=== PATIENT | male | born 1995 | race Caucasian/White ===

== ENCOUNTER 2022-10-01 08:08 | Inpatient (IN) | payer OTHER ==
[2022-10-01] VITALS (233 sets, daily range): BP systolic 59–138; BP diastolic 29–91; PULSE 80–95; TEMP 99–100.7; O2SAT 32–100
[~2022-10-01] VITALS: Wt 68.2 kg
[2022-10-01 08:40] LABS: HEMATOCRIT 50.3 % (42.0-52.0); HEMOGLOBIN 16.6 g/dl (13.5-18.0); MEAN CELL VOLUME 90 fl (80.0-100.0); MEAN CORPUSCULAR HEMOGLOBIN 30 pg (27-31); MEAN CORPUSCULAR HGB CONC 33 g/dl (33.0-37.0); MEAN PLATELET VOLUME 9.8 fl (7.4-10.4); PLATELET COUNT 347 K/mm3 (130-400); RED BLOOD COUNT 5.62 M/mm3 (4.20-5.60); REDCELL DISTRIBUTION WIDTH-CV 12.1 % (11.5-14.5)
[2022-10-01 08:47] LABS: BAND 3 % (0-10); LYMPHOCYTE 88 % (20.0-51.0); NEUTROPHILS 7 % (42.0-75.2); PLATELET ESTIMATE NORMAL (NORMAL)
[2022-10-01 08:49] LABS: COLLECTION METHOD CATHETER
[2022-10-01 08:51] LABS: BILIRUBIN,TOTAL 0.7 mg/dL (0.2-1.2); CALCIUM 9.5 mg/dL (8.4-10.2); CREATININE, serum 1.44 mg/dL (0.72-1.25); POTASSIUM 3.3 mmol/L (3.5-4.5); TOTAL PROTEIN 6.8 gm/dL (6.2-8.1)
[2022-10-01 08:53] LABS: PROTHROMBIN TIME 11.4 SECONDS (9.7-12.8)
[2022-10-01 08:56] LABS: TROPONIN-I 0.013 ng/mL (0.00-0.033)
[2022-10-01 09:03] LABS: ARTERIAL BLD GAS O2 SATURATION 91.8 % (92-100); ARTERIAL BLD GAS TCO2 CT 16.7; ARTERIAL BLOOD GAS BASE EXCESS -13.6 (-2-2); ARTERIAL BLOOD GAS HCO3 15.3 meq/L (22-26); ARTERIAL BLOOD GAS PCO2 46.4 mmHg (35-45); ARTERIAL BLOOD GAS PO2 79.1 mmHg (80-100); ARTERIAL BLOOD GAS pH 7.14 (7.35-7.45)
[2022-10-01 09:11] LABS: TRICYCLIC ANTIDEPRESS URINE NEGATIVE
[2022-10-01 09:13] LABS: MUCOUS Present (NOT PRESENT); SQUAMOUS EPITHELIAL 0-2 /hpf (0-10); URINE BACTERIA None Seen /hpf (NONE SEEN)
[2022-10-01 09:15] LABS: PH 6.5 (5.0-8.5); URINE APPEARANCE Clear (CLEAR/HAZY); URINE BLOOD 1+ (NEGATIVE); URINE COLOR Yellow (YELLOW); URINE GLUCOSE 1+ (NEGATIVE); URINE KETONE Negative (NEGATIVE); URINE NITRATE Negative (NEGATIVE); URINE PROTEIN(semi-quant) 3+ (NEGATIVE); URINE UROBILINOGEN 0.2 E.U/dL (0.2-1.0)
[2022-10-01] MEDS ORDERED: ZOLOFT 100MG100 MG PO (09:36)
--- NOTE | 2022-10-01 09:45 | NUR ---
THIS NURSE RECIEVED PT A POST CODE, GIRLFRIEND IS BEDSIDE BUT POOR HISTORIA ON PMH.
--- NOTE | 2022-10-01 10:00 | NUR ---
REMOVED RIGHT TIB IO .
--- NOTE | 2022-10-01 10:09 | NUR ---
called to Emergency Department by Sccm Administrator to be with a young woman who is patient's significant other. Patient holding his own while Physicians are ordering tests to discern the cause of his issues. Patient's body shut down at one point. talked with Rachel' friend letting her know Medical Office Assistant is available to her throughout the day. She thanked and stated that she was on the phone with patient's family at that time.
[2022-10-01 10:45] LABS: ALBUMIN 2.8 gm/dL (3.5-5.0); BILIRUBIN,TOTAL 0.5 mg/dL (0.2-1.2); PHOSPHOROUS 3.4 mg/dL (2.3-4.7); TOTAL PROTEIN 4.7 gm/dL (6.2-8.1)
[2022-10-01 10:48] LABS: CALCIUM 7.4 mg/dL (8.4-10.2); CREATININE, serum 1.13 mg/dL (0.72-1.25); MAGNESIUM 1.6 mg/dL (1.6-2.6)
[2022-10-01 10:56] LABS: TROPONIN-I 0.327 ng/mL (0.00-0.033)
--- NOTE | 2022-10-01 10:57 | NUR ---
PT TO THE UNIT AT 0926. PT IS INTUBATED ON MECHANICAL VENTILATOR, PROPOFOL, FENTANYL, LEVOPHED RUNNING. RICE AND OG IN PLACE. DR. HUTTON BEDSIDE. PT PLACED ON ICU MONITORING.
[2022-10-01 11:19] LABS: BILIRUBIN,DIRECT 0.2 mg/dL (0.0-0.5)
--- NOTE | 2022-10-01 12:00 | NUR ---
RECTAL TEMP PLACED. COOLING BLANKET ON AND HYPOTHERMIC PROTOCOL STARTED.
[2022-10-01 13:05] LABS: ARTERIAL BLD GAS O2 SATURATION 92.1 % (92-100); ARTERIAL BLD GAS TCO2 CT 20.8; ARTERIAL BLOOD GAS BASE EXCESS -6.5 (-2-2); ARTERIAL BLOOD GAS HCO3 19.5 meq/L (22-26); ARTERIAL BLOOD GAS PO2 68.4 mmHg (80-100)
--- NOTE | 2022-10-01 14:07 | NUR ---
derrick worker met with patient's girlfriend of 10 years, Stephanie #[phone] and offered support. Stephanie states patient recently graduated from the [employer] and had secured a job in [facility]. Stephanie stated that she has notified patient's parents and that they are flying here from [facility] and that her sister is flying here as well to be with her. Chaplain Santamaria is present and supportive. We are waiting to see if [facility] accepts.
--- NOTE | 2022-10-01 14:10 | NUR ---
Follow-up; Patient having setbacks, Credit Control Clerk offered prayer and stayed with his girlfriend, Stephanie off and on throughout the day.
[2022-10-01 14:31] LABS: ARTERIAL BLD GAS TCO2 CT 19.8; ARTERIAL BLOOD GAS BASE EXCESS -6.6 (-2-2); ARTERIAL BLOOD GAS HCO3 18.7 meq/L (22-26); ARTERIAL BLOOD GAS PCO2 36.8 mmHg (35-45); ARTERIAL BLOOD GAS PO2 81.9 mmHg (80-100); ARTERIAL BLOOD GAS pH 7.32 (7.35-7.45)
--- NOTE | 2022-10-01 17:00 | NUR ---
DESPITE COOLING BLANKET, PT MAINTAINS A HIGH TEMPERATURE 100.6 RECTAL. PT DOES SHIVER. SEE MAR FOR MEDICATION GIVEN.
--- NOTE | 2022-10-01 17:44 | NUR ---
REPORT GIVEN [facility] [phone] FOR [id number]
--- NOTE | 2022-10-01 17:49 | NUR ---
THIS NURSE RECIEVED PT AT 0945 PT IS IN ICU 01 SEDATED AND VENTILATED. AT 1200 PT WENT DOWN TO CT WITH THIS NURSE, RN STUDENT, AND RT JUDY. UNEVENTFUL ON ARRIVAL BACK TO ICU ROOM THIS NURSE STARTED TO NOTICE THAT PT BP WAS GETTING LOW, WHILE RE-INITIATING THE ART LINE THIS NURSE NOTICED VERY POR WAVEFORMS . PULSE WAS CHECKED AND PT HAD TOO WEAK OR NO PULSE WHILE MONITOR SHOWED A SR IN THE 80S. THIS NURSE INITIATED CPR AND CALLED A CODE BLUE SEE CODE BLUE RECORD WITH DR. TAYLOR AND DR. GARCIA BEDSIDE PT ACHIEVED ROSC SEE GTT TITRATIONS SEE ASSESSMENT
--- NOTE | 2022-10-02 07:34 | NUR ---
On 10/01/22, patient was accepted to . Girlfriend, Stephanie, states that she will await her sister's arrival and drive with her to . campaign worker offered emotional support. Dr Cao provided updates to Stephanie and patient's parents that were on speaker phone.
--- NOTE | 2022-10-04 10:42 | NUR ---
Follow-up; Patient transported to [place] where word came 10/03 that he is recovering well and family wanted everyone who cared for him at [facility] to know how much he and family appreciates his care here. thanked Stephanie (his girlfriend) for calling with a wonderful update on Talis' physical improvement.
== END 2022-10-01 19:09 | disposition short-term general hospital (02) | DRG 280 ==
LOC: COL.ER 08:08 → ICU 08:57
PROVIDERS: Family Medicine; Internal Medicine Pulmonary Disease; ADMIT Internal Medicine
PROC: 02HV33Z Insertion of Infusion Device into Superior Vena Cava, Percutaneous Approach (ICD-10-PCS; principal; 2022-10-01)
PROC: 03HY32Z Insertion of Monitoring Device into Upper Artery, Percutaneous Approach (ICD-10-PCS; 2022-10-01)
PROC: 4A133B1 Monitoring of Arterial Pressure, Peripheral, Percutaneous Approach (ICD-10-PCS; 2022-10-01)
PROC: 4A133J1 Monitoring of Arterial Pulse, Peripheral, Percutaneous Approach (ICD-10-PCS; 2022-10-01)
PROC: 0BH17EZ Insertion of Endotracheal Airway into Trachea, Via Natural or Artificial Opening (ICD-10-PCS; 2022-10-01)
PROC: 5A12012 Performance of Cardiac Output, Single, Manual (ICD-10-PCS; 2022-10-01)
DX: I49.01 Ventricular fibrillation (principal); G93.41 Metabolic encephalopathy; I21.4 Non-ST elevation (NSTEMI) myocardial infarction; J96.01 Acute respiratory failure with hypoxia; K72.00 Acute and subacute hepatic failure without coma; N17.9 Acute kidney failure, unspecified; G40.801 Other epilepsy, not intractable, with status epilepticus; J81.1 Chronic pulmonary edema; E87.29 Other acidosis; N13.30 Unspecified hydronephrosis; I46.9 Cardiac arrest, cause unspecified; I95.9 Hypotension, unspecified; I45.10 Unspecified right bundle-branch block; F32.A Depression, unspecified; E87.6 Hypokalemia
CPT/HCPCS: A4314; C1751; C1892; J0171; J0282; J0330; J0461; J0692; J1953; J2060; J2175; J2251; J2543; J2704; J3010; J3475; J7060; J7120; Q2009; Q9967